=== PATIENT | female | born 1940 | race Caucasian/White ===

== ENCOUNTER 2018-08-17 12:05 | Inpatient (IN) | payer MEDICARE, MEDICAID ==
[~2018-08-17 12:05] MED LIST: ISOVUE-370 76%-LOCM 1 ML ONE
[2018-08-17] MEDS ORDERED: Aspirin Chewable 81 MG TAB ONE (13:06)
[2018-08-17] MEDS ORDERED: Nitroglycerin 2% Ointment 1 INCH/1 GM Packet ONE (13:06)
[2018-08-17 13:09] LABS: #Lymphocytes 1.4 thou/uL (1.20-3.40); #Monocytes 0.4 thou/uL (0.11-0.59); #Neutrophils 3.4 thou/uL (1.40-6.50); %Basophils 0.3 % (0.0-1.0); %Eosinophils 0.5 % (0.0-10.0); %Lymphocytes 26.1 % (21.0-51.0); %Neutrophils 65.1 % (42.0-75.0); Mean Corpuscular HGB CONC 30.5 g/dL (32.0-36.0); Mean Corpuscular Hemoglobin 23.5 pg (27.0-31.0); Mean Corpuscular Volume 76.9 fL (78.0-98.0); Mean Platelet Volume 8.3 fL (7.4-10.4); Platelet Count 340 thou/uL (130-400); RBC Distribution Width 15.4 % (11.5-14.5); Red Blood Cell (RBC) Count 3.82 mill/uL (4.20-5.40); White Blood Cell (WBC) Count 5.3 thou/uL (4.8-10.8)
--- NOTE | 2018-08-17 13:25 | RAD ---
Chest AP view INDICATION: Dyspnea COMPARISON: None FINDINGS: Lungs:There are scattered chronic lung changes. No acute airspace opacity is evident. Cardiac silhouette pulmonary vasculature:There is moderate cardiomegaly. No pulmonary vascular conges tion is present. Pleural spaces:No pleural effusion or pneumothorax is demonstrated. Upper abdomen:No abnormality seen. Osseous structures: There is scattered degenerative and osteoarthritic change. There is mild scoliosi s. There is a wedge compression abnormality of T12 vertebral plasty change. IMPRESSION: Moderate cardiomegaly without evidence of cardiac decompensation.
[2018-08-17 13:38] LABS: ALT (SGPT) Less than 7 U/L (8-55); AST (SGOT) 10 U/L (5-34); Albumin 4.1 g/dL (3.4-4.8); Alkaline Phosphatase 70 U/L (40-150); Anion Gap 12 mmol/L (10-20); BUN (Urea Nitrogen) 17 mg/dL (9.8-20.1); Bilirubin, Total 0.3 mg/dL (0.2-1.2); Calc. Creatinine Clearance 0 mL/min (70-130); Calcium 9.9 mg/dL (7.8-10.44); Carbon Dioxide 27 mmol/L (23-31); Chloride 104 mmol/L (98-107); Estimated GFR-MDRD 80; Globulin 2.1 g/dL (2.4-3.5); Glucose 89 mg/dL (83-110); Lipase 472 U/L (8-78); Potassium 4.8 mmol/L (3.5-5.1); Protein, Total 6.2 g/dL (6.0-8.3); Sodium 138 mmol/L (136-145)
--- NOTE | 2018-08-17 14:42 | CT ---
CT abdomen and pelvis with IV contrast HISTORY: Chest and abdomen pain. FINDINGS: Mild atelectasis at the lung bases. Calcification throughout the arterial structures. Small right renal cysts. Other solid organs are within normal limits. Nonspecific lymph nodes throughout the retroperitoneum and mesentery. Urinary bladder is well distended. Bilateral hip prostheses. Degen erative changes lumbar spine. Appendix is not inflamed. No evidence of bowel obstruction. IMPRESSION: No acute abnormalities are demonstrated to explain pain. Atherosclerosis.
[2018-08-17] MEDS ORDERED: Senokot S 8.6-50 MG TAB PO PRN (15:04)
[2018-08-17] MEDS ORDERED: Guaifenesin DM 100-10/5 ML UDCUP PO PRN (15:04)
[2018-08-17] MEDS ORDERED: Acetaminophen 650 MG Suppository PR PRN (15:04)
[2018-08-17] MEDS ORDERED: Ondansetron ODT 4 MG TAB PO PRN (15:04)
[2018-08-17] MEDS ORDERED: Ondansetron PF 4 MG/2 ML Vial IVP PRN (15:04)
--- NOTE | 2018-08-17 15:31 | ULT ---
GALLBLADDER ULTRASOUND: INDICATIONS: Abdominal pain. FINDINGS: The gallbladder has a normal sonographic appearance. No evidence of gallstones. The common duct is of normal caliber, measured at 4 mm. The liver is unremarkable. The pancreas is mostly obscured. The right kidney is imaged and appears unremarkable. IMPRESSION: Unremarkable gallbladder ultrasound. POS: [facility]
[2018-08-17] MEDS ORDERED: HumaLOG 300 UNITS/3 ML VIAL SC PRN ×2 (15:47)
[2018-08-17] MEDS ORDERED: Dextrose 5% in Water 1,000 ML IV PRN (15:47)
[2018-08-17] MEDS ORDERED: Dextrose 50% Abboject 50 ML SYRINGE SLOW IVP PRN (15:47)
[2018-08-17 15:49] LABS: Cardiac Risk 3.1 (Less than 4.5)
[2018-08-17 17:21] LABS: Troponin I Less than 0.010 ng/mL (< 0.028)
[2018-08-17] MEDS: Sodium Chloride 0.9% 1,000 ML IV SCH (18:02)
[2018-08-17] MEDS: metFORMIN 500 MG TAB PO SCH (18:02)
[2018-08-17] MEDS: Acetaminophen 325 MG TAB PO PRN (18:02)
[2018-08-17 20:02] LABS: Troponin I Less than 0.010 ng/mL (< 0.028)
[2018-08-17] MEDS: Pregabalin 75 MG CAP PO SCH (20:53)
[2018-08-17] MEDS: Senokot 8.6 MG TAB PO SCH (20:53)
[2018-08-17] MEDS: Donepezil HCl 5 MG TAB PO SCH (20:54)
[2018-08-17] MEDS: Carbidopa/Levodopa 25-100 mg Tablet PO SCH (20:54)
[2018-08-17] MEDS: Tamsulosin HCl 0.4 MG CAP PO SCH (20:56)
[2018-08-17] MEDS: Loratadine 10 MG TAB PO SCH (20:56)
[2018-08-17] MEDS ORDERED: Famotidine/PF 20 mg/2ml Vial SLOW IVP SCH (21:00)
--- NOTE | 2018-08-17 21:26 | CON ---
DATE OF CONSULTATION: 08/17/2018 REASON FOR CONSULTATION: Chest pain. HISTORY OF PRESENT ILLNESS: Ms. Latif is a very pleasant 78-year-old white female, who comes to the hospital for chest pain. She states that she has chest pains all the time. She has had it for many years. In the last 2 weeks, it has been worsening, so she finally decided to come in for evaluation. She was given aspirin, sublingual nitroglycerin spray and there was no significant improvement in her chest pain. She states that it is in the left upper part, she feels it is deeper when you touch her chest, she complains of pain at that time as well. Currently, she is having the same ongoing pain that she has had for the last few years and worse in the last few weeks. PAST MEDICAL HISTORY: 1. Parkinson disease. 2. Chronic UTIs. 3. TIAs in the past. 4. Mild facial droop. 5. Type 2 diabetes. 6. Hyperlipidemia. 7. Hypertension. SURGICAL HISTORY: 1. Bilateral ankles surgery. 2. Knee surgery. 3. Hip surgery. 4. Right wrist surgery. 5. Skin cancer removal. 6. Tonsillectomy. SOCIAL HISTORY: Former tobacco user, quit over 10 years ago. Lives in a long-term care facility in the [facility]. No alcohol or drugs. ALLERGIES: 1. CODEINE. 2. PENICILLIN. 3. SULFA DRUGS. OUTPATIENT MEDICATIONS: 1. Estradiol. 2. Tamsulosin, unclear as to why she is on tamsulosin. 3. Namenda. 4. Aricept. 5. Lyrica. 6. Nexium. 7. Sinemet. 8. Senna. 9. Vitamin E. 10. Vitamin D. 11. Aspirin 81 a day. 12. Lamotrigine. 13. Zyrtec. 14. Metformin 1000 mg twice a day. REVIEW OF SYSTEMS: A 12-point review of systems was done and was all negative unless stated in the history of present illness. She also admits to abdominal pain. PHYSICAL EXAMINATION: VITAL SIGNS: Temperature 97.8, pulse 62, respiratory rate 16, saturating 96% on room air, and blood pressure 135/61. GENERAL: Awake, alert, and oriented x3, in no distress. HEENT: Normocephalic atraumatic. NECK: Supple. LUNGS: Clear. CARDIOVASCULAR: S1 and S2. No S3 or S4. No murmurs. ABDOMEN: Soft. Positive bowel sounds. EXTREMITIES: No edema. SKIN: Warm and dry. LABORATORY DATA: Laboratory work was reviewed. CBC with a white count of 5.3, hemoglobin of 9.0, hematocrit of 29, platelet count of 340. Chemistry with unremarkable CMP. AST is less than assay limit. Troponin is undetectable x2. Glucose was 75, then 144. Cholesterol total of 211, LDL of 122, HDL of 69, triglycerides of 102. Lipase was 472, normal is up to 78. DIAGNOSTIC DATA: CT of the abdomen and pelvis was unremarkable. Abdominal ultrasound was unremarkable as well. Chest x-ray was unremarkable. ASSESSMENT: 1. Chest pain, atypical in nature. 2. Abdominal pain. Primary team is evaluating. 3. Elevated lipase. Nonspecific finding at this time. PLAN: We would risk stratify with an echo and a stress test. I do not think this is coronary artery disease. The symptoms are certainly not typical. We will get a nuclear myocardial perfusion scan and an echocardiogram, and further recommendations per results of testing. Job ID: [id number]
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
--- NOTE | 2018-08-18 02:43 | CON ---
DATE OF CONSULTATION: 08/17/2018 REASON FOR CONSULTATION: Pancreatitis. HISTORY OF PRESENT ILLNESS: Emily Latif is a 78-year-old woman who was admitted to the hospital today for evaluation of chest pain with labs demonstrating elevated lipase. The patient has a history of Parkinson's disease, chronic recurrent urinary tract infections, and a previous mild TIA. She has diabetes, hyperlipidemia, and hypertension. She denies any prior history of pancreatitis or any significant gastrointestinal history. She is a former tobacco user. She does not use any alcohol. She lives at a long-term care facility. She reports that for about the past 10 days, she has been having steadily progressively worsening chest pain. This is in the left side of the chest. It is worse with activity, not particularly related to eating. It significantly worsened earlier today prompting her presentation. She does associate with some shortness of breath, though no cough. She denies any dysphagia or difficulty swallowing. She does say she was nauseated 2 or 3 times in the past couple of days, though she has not had any vomiting. She also does say she has some generalized abdominal tenderness, but attributes this to recurrent urinary tract infections. No issues with the bowel movements. She also tells me that she is steadily lost weight 80-90 pounds over the past year. She says her appetite fluctuates. It is often very good and then she will go through periods where it is quite poor. She attributes this to depression. Upon presentation, she was found to have an elevated lipase to 472, but normal LFTs. Negative troponin. She is also anemic with hemoglobin of 9.0, note hemoglobin was 9.7 last April. This is a microcytic anemia with MCV at 76.9. There is no overt bleeding from anywhere. IMAGING: Imaging studies showed essentially normal abdominal ultrasound, normal CT of the abdomen and pelvis except for atherosclerosis and the chest x-ray showing only moderate cardiomegaly. Cardiology has been consulted as well. The patient was actually given a regular cardiac diet and says she ate some turkey and some salad with no significant impact on chest discomfort or any inducement of abdominal pain. REVIEW OF SYSTEMS: Full review of systems including constitutional, head, eyes, ears, nose, throat, GI, , cardiovascular, respiratory, musculoskeletal, neurologic systems is negative except as noted in the HPI. PAST MEDICAL HISTORY: Parkinson's disease, TIA, hypertension, hyperlipidemia, diabetes type 2, right-sided facial droop, recurrent urinary tract infections, bilateral knee surgery, right wrist surgery, skin cancer removal from the face x2, tonsillectomy. SOCIAL HISTORY: She lives in [facility] in [place]. She is a former smoker, quit more than 10 years ago. No alcohol or drug use. FAMILY HISTORY: Noncontributory. ALLERGIES: CODEINE, PENICILLIN, SULFA. OUTPATIENT MEDICATIONS: 1. Estradiol patch. 2. Flomax. 3. Namenda. 4. Aricept. 5. Lyrica. 6. Nexium 40 mg daily. Sinemet. 1. Senna 8.6 mg daily. 2. Vitamin E. 3. Vitamin D with calcium. 4. Aspirin 81 mg daily. 5. Lamotrigine. 6. Zyrtec. 7. Metformin. PHYSICAL EXAMINATION: VITAL SIGNS: Temperature 98.4, pulse 56, blood pressure 144/75, 98% oxygen saturation on room air. GENERAL: Elderly 78-year-old woman lying in bed comfortably, in no distress. MENTAL: She is alert and oriented. She is able to answer detailed questions about current symptoms; however recent and distant past history is less clear to her. SKIN: No jaundice, no rashes were palpable. EYES: No scleral icterus. Extraocular movements intact. ENT: Mucous membranes moist. No oral lesions. LYMPH: No submandibular supraclavicular lymphadenopathy. THYROID: Nontender to palpation. HEART: Regular rate and rhythm. LUNGS : Clear to auscultation bilaterally. ABDOMEN: Bowel sounds are present. The abdomen is soft. She does endorse diffuse mild tenderness to palpation throughout the abdomen, but there is no guarding, rebound tenderness. EXTREMITIES: No peripheral edema. VESSELS: Radial pulses 2+ bilaterally. NEUROLOGIC: Cranial nerves 2-12 intact bilaterally. No focal deficits. LABORATORY STUDIES: Hemoglobin 9.0, WBC 5.3, platelets 340, MCV 76.9. Sodium 138, potassium 4.8, BUN 17, creatinine 0.71, glucose 89, total bilirubin 0.3, alkaline phosphatase 70, AST 10, ALT less than 7, albumin 4.1, triglyceride 102. Troponin negative. Lipase elevated to 472. IMAGING STUDIES: Chest x-ray shows moderate cardiomegaly. Abdominal ultrasound shows normal appearing liver, gallbladder and common bile duct measuring only [address] of the abdomen and pelvis shows diffuse atherosclerosis, but otherwise no abnormalities with solid organs. No acute processes. ASSESSMENT/PLAN: 1. Chest pain, left-sided. 2. Elevated lipase, mild. 3. Microcytic anemia. The patient's symptomatic presentation is really not highly suggestive of pancreatitis. Her discomfort is primarily in the left side of the chest and is related more to exertion than to oral intake. I agree with cardiac consultation and any workup as appropriate. She does have a mild elevation in lipase, but I note no significant findings for pancreatitis on imaging. I do think it would be prudent to have her n.p.o. tonight and tomorrow morning, treat supportively as pancreatitis while cardiac workup is ongoing. With regard to the anemia, this is mildly microcytic. We will go ahead and get iron studies, B12, and folic acid levels with morning labs. If the patient is iron deficient, consider anemia as a contributing factor for her chest discomfort. Could consider endoscopic workup to rule out occult bleeding lesion, if iron deficiency is demonstrated. Thank you for the consultation. Please call anytime with questions or concerns. Job ID: [id number]
[2018-08-18] MEDS: Acetaminophen 325 MG TAB PO PRN ×2 (04:08→18:32)
[2018-08-18] MEDS: Sodium Chloride 0.9% 1,000 ML IV SCH ×2 (04:20→18:38)
[2018-08-18] MEDS: Morphine 4 MG/ML VIAL SLOW IVP PRN ×2 (06:08→10:33)
[2018-08-18 06:21] LABS: #Eosinphils 0.1 thou/uL (0.0-0.7); #Lymphocytes 1.7 thou/uL (1.20-3.40); #Monocytes 0.6 thou/uL (0.11-0.59); #Neutrophils 5.5 thou/uL (1.40-6.50); %Basophils 0.5 % (0.0-1.0); %Eosinophils 0.8 % (0.0-10.0); %Lymphocytes 21.1 % (21.0-51.0); %Monocytes 7.8 % (0.0-10.0); %Neutrophils 69.9 % (42.0-75.0); Mean Corpuscular HGB CONC 31.2 g/dL (32.0-36.0); Mean Corpuscular Hemoglobin 23.9 pg (27.0-31.0); Mean Corpuscular Volume 76.7 fL (78.0-98.0); Mean Platelet Volume 8.6 fL (7.4-10.4); Platelet Count 351 thou/uL (130-400); RBC Distribution Width 15.5 % (11.5-14.5); Red Blood Cell (RBC) Count 3.78 mill/uL (4.20-5.40); White Blood Cell (WBC) Count 7.9 thou/uL (4.8-10.8)
[2018-08-18 06:43] LABS: ALT (SGPT) Less than 7 U/L (8-55); AST (SGOT) 9 U/L (5-34); Albumin 3.6 g/dL (3.4-4.8); Alkaline Phosphatase 68 U/L (40-150); Anion Gap 11 mmol/L (10-20); BUN (Urea Nitrogen) 14 mg/dL (9.8-20.1); Bilirubin, Total 0.3 mg/dL (0.2-1.2); Calc. Creatinine Clearance 62 mL/min (70-130); Carbon Dioxide 26 mmol/L (23-31); Chloride 105 mmol/L (98-107); Estimated GFR-MDRD 78; Globulin 2.2 g/dL (2.4-3.5); Glucose 90 mg/dL (83-110); Iron 16 ug/dL (50-170); Iron Binding Capacity, Total 358 mcg/dL (265-497); Lipase 632 U/L (8-78); Potassium 3.8 mmol/L (3.5-5.1); Protein, Total 5.8 g/dL (6.0-8.3); Sodium 138 mmol/L (136-145)
[2018-08-18 07:13] LABS: Folate (Folic Acid) 7.6 ng/mL (7.0-31.4)
[2018-08-18] MEDS ORDERED: Regadenoson 0.4 MG/5 ML SYRINGE ONE (10:24)
[2018-08-18] MEDS: Pregabalin 75 MG CAP PO SCH ×2 (10:42→20:41)
--- NOTE | 2018-08-18 14:49 | NM ---
EXAM: CARDIAC SPECT HISTORY: Chest pain, TIA, diabetes, hypertension, dyslipidemia. TECHNIQUE: A myocardial perfusion scan was performed using the single isotope 1 day protocol with prince hnetium 99m sestamibi. [9 mCi] was injected intravenously for the rest exam followed by 28 mCi for the stress study. Pharmacologic stress with Lexiscan was monitored and interpreted by Dr. Montano. FINDINGS: Homogeneous tracer distribution is seen in the myocardial segments on stress and rest image s without fixed or reversible defects. Gated SPECT LVEF: 58% Wall motion exam: Normal IMPRESSION: Normal myocardial perfusion scan
[2018-08-18] MEDS: Carbidopa/Levodopa 25-100 mg Tablet PO SCH ×3 (15:04→20:51)
[2018-08-18] MEDS: Tamsulosin HCl 0.4 MG CAP PO SCH ×2 (15:04→20:51)
[2018-08-18] MEDS: metFORMIN 500 MG TAB PO SCH ×2 (15:05→18:34)
[2018-08-18] MEDS: Enoxaparin Sodium 40 MG/0.4 ML SYRINGE SC SCH (15:06)
[2018-08-18] MEDS: lamoTRIgine 100 MG TAB PO SCH (15:07)
[2018-08-18] MEDS: Aspirin 81 mg Enteric Coated Tablet PO SCH (15:08)
--- NOTE | 2018-08-18 16:06 | PDOC.CTH ---
Cardiology Progress Note - Subjective No new issues. - Objective Vital Signs Temp Pulse Pulse Resp BP BP Pulse Ox 08/18/18 14:36 98.3 F 68 18 151/72 H 95 08/18/18 14:10 78 159/60 H 08/18/18 07:56 98.3 F 63 18 177/81 H 95 Admit Weight 137 lb 8 oz Weight 133 lb 8 oz 08/17/18 08/18/18 08/19/18 06:59 06:59 06:59 Intake Total 1410.5 Output Total 825 Balance 585.5 - Physical Examination General/Neuro: alert & oriented x3, NAD Neck: no JVD present Lungs: CTA, unlabored respirations Heart: RRR Abdomen: NT/ND Extremities: other: (no edema.) - Telemetry Telemetry Rhythm: NSR - Labs Result Diagrams: 08/18/18 05:47 08/18/18 05:47 Troponin/CKMB Troponin I Less than 0.010 ng/mL (< 0.028) 08/17/18 19:30 - Assessment/Plan 1. Chest pain PLAN: - Normal echo , normal stress test. - Reassurance. - Will sign out. Please call with any questions.
--- NOTE | 2018-08-18 16:07 | PDOC.PN ---
- Subjective Encounter Start Date: 08/18/18 Encounter Start Time: 09:00 -: patient examined today, still c/o of abdominal pain - Objective Resuscitation Status - Order Detail: 08/17/18 14:55 Resuscitation Status Routine Resuscitation Status: FULL: Full Resuscitation Discussed with: Patient Vital Signs & Weight: Vital Signs (12 hours) Temp Pulse Pulse Resp BP BP Pulse Ox 08/18/18 14:36 98.3 F 68 18 151/72 H 95 08/18/18 14:10 78 159/60 H 08/18/18 07:56 98.3 F 63 18 177/81 H 95 Weight Admit Weight 62.369 kg Weight 60.555 kg I&O: 08/17/18 08/18/18 08/19/18 06:59 06:59 06:59 Intake Total 1410.5 Output Total 825 Balance 585.5 Result Diagrams: 08/18/18 05:47 08/18/18 05:47 Additional Labs: Accuchecks 08/18/18 08/17/18 08/17/18 05:24 20:19 17:52 POC Glucose 100 144 H 75 Phys Exam - Physical Examination HEENT: PERRLA, moist MMs Respiratory: clear to auscultation bilateral Cardiovascular: RRR Gastrointestinal: soft diffusely tender Musculoskeletal: pulses present Neurological: non-focal, normal sensation Lymphatic: no nodes Psychiatric: normal affect, A&O x 3 Skin: normal turgor Dx/Plan (1) Abdominal pain Code(s): R10.9 - UNSPECIFIED ABDOMINAL PAIN Status: Acute (2) Pancreatitis Code(s): K85.90 - ACUTE PANCREATITIS WITHOUT NECROSIS OR INFECTION, UNSP Status: Acute (3) Diabetes mellitus Code(s): E11.9 - TYPE 2 DIABETES MELLITUS WITHOUT COMPLICATIONS Status: Chronic (4) Hypertension Code(s): I10 - ESSENTIAL (PRIMARY) HYPERTENSION Status: Chronic - Plan NPO, IV fluids, UA -: Will recheck lab in the AM, * .
[2018-08-18] MEDS ORDERED: GoLYTELY 4,000 ml Bottle PO SCH (18:15)
--- NOTE | 2018-08-18 18:42 | PRG ---
DATE OF SERVICE: 08/18/2018 SUBJECTIVE: Ms. Latif says her chest pain has greatly improved today, but she does still complain of abdominal pain. This is migratory throughout the abdomen. The upper abdomen is tender to palpation and so was the lower abdomen. There was some mild nausea, but no vomiting. She had fairly unremarkable cardiac evaluation and Cardiology has signed off. Amylase and lipase both remain mildly elevated and she remains hemodynamically stable. She actually had several bites of a sandwich after her stress test today, and does not feel like that particularly made her abdominal discomfort worse. However, her appetite remains poor. OBJECTIVE: VITAL SIGNS: Temperature 98.3, pulse 68, blood pressure 151/72, and 95% oxygen saturation on room air. GENERAL: No acute distress. HEART: Regular rate and rhythm. LUNGS: Clear to auscultation bilaterally. ABDOMEN: Bowel sounds present. Soft. Diffuse tenderness to palpation throughout. No guarding or rebound tenderness. EXTREMITIES: No peripheral edema. LABORATORY STUDIES: Hemoglobin 9.0, WBC 7.9, platelets 351. Sodium 138, potassium 3.8, BUN 14, creatinine 0.72, glucose 124. She is iron deficient with ferritin only 8.39, iron 16, TIBC 358. LFTs all remain normal. B12 was normal at 838, folate 7.6, amylase elevated , lipase elevated to 632. ASSESSMENT AND PLAN: 1. Iron-deficiency anemia. 2. Chest pain, resolved for now. 3. Generalized abdominal pain. 4. Elevated amylase and lipase. The patient's presentation still does not really add up. She has these mild elevations of amylase and lipase, but no CT findings consistent with pancreatitis. She has this more generalized abdominal pain, which is not necessarily worsened postprandially. Putting this all together with the iron-deficiency anemia, need to consider GI mucosal based lesion or malignancy. The patient states her last colonoscopy would have been greater than 5 years ago elsewhere and that she is due for it. I think the best way forward would be to go ahead and proceed with endoscopic workup for her iron-deficiency anemia, and also see on the abdominal pain. We will go ahead and try to administer bowel preparation tonight and plan for procedure tomorrow. Thank you for the consultation. GI will continue to follow. Further recommendations following endoscopy tomorrow. Job ID: [id number]
[2018-08-18] MEDS: Donepezil HCl 5 MG TAB PO SCH (20:50)
[2018-08-18] MEDS: Senokot 8.6 MG TAB PO SCH (20:51)
[2018-08-18] MEDS: Loratadine 10 MG TAB PO SCH (20:51)
[2018-08-19] MEDS: Sodium Chloride 0.9% 1,000 ML IV SCH (06:17)
[2018-08-19] MEDS: Morphine 4 MG/ML VIAL SLOW IVP PRN ×2 (06:41→20:17)
[2018-08-19] MEDS ORDERED: Artificial Tears 18 DROP/0.9 ML EA EYE PRN (07:44)
[2018-08-19] MEDS ORDERED: Loperamide HCl 2 MG CAP PO PRN (07:44)
[2018-08-19] MEDS ORDERED: hydrALAZINE 20 MG/ML VIAL SLOW IVP PRN (07:44)
[2018-08-19] MEDS ORDERED: Zolpidem Tartrate 5 MG TAB PO PRN (07:44)
[2018-08-19] MEDS ORDERED: Eucerin (Mineral Oil/Petrolatum,White) 30 gm Jar TOP PRN (07:44)
[2018-08-19] MEDS ORDERED: Bisacodyl 10 MG SUPP PR PRN (07:44)
[2018-08-19] MEDS ORDERED: Diabetic Tussin 200 MG/10 ML UDCUP PO PRN (07:44)
[2018-08-19] MEDS ORDERED: Cepastat Lozenges 1 LOZ PO PRN (07:44)
[2018-08-19] MEDS ORDERED: Iron Sucrose Complex 200 MG in Sodium Chloride 0.9% 250 ML 250 ML IVPB SCH (07:45)
[2018-08-19] MEDS ORDERED: Iron, Sodium Ferric Gluconate 250 MG in Sodium Chloride 0.9% 100 ML IVPB SCH (08:00)
[2018-08-19] MEDS: metFORMIN 500 MG TAB PO SCH ×2 (08:57→16:57)
[2018-08-19] MEDS: Pregabalin 75 MG CAP PO SCH ×2 (08:57→20:22)
[2018-08-19] MEDS: Aspirin 81 mg Enteric Coated Tablet PO SCH (08:57)
[2018-08-19] MEDS: Enoxaparin Sodium 40 MG/0.4 ML SYRINGE SC SCH (08:57)
[2018-08-19] MEDS: Tamsulosin HCl 0.4 MG CAP PO SCH ×2 (08:58→20:22)
[2018-08-19] MEDS: Carbidopa/Levodopa 25-100 mg Tablet PO SCH ×3 (08:58→20:25)
[2018-08-19] MEDS: lamoTRIgine 100 MG TAB PO SCH (08:58)
--- NOTE | 2018-08-19 10:10 | PDOC.PN ---
- Subjective Encounter Start Date: 08/19/18 Encounter Start Time: 07:50 Patient seen and examined. No new complaints. No overnight events - Objective Resuscitation Status - Order Detail: 08/17/18 14:55 Resuscitation Status Routine Resuscitation Status: FULL: Full Resuscitation Discussed with: Patient ANASTACIO Reviewed: Yes Vital Signs & Weight: Vital Signs (12 hours) Temp Pulse Resp BP BP Pulse Ox 08/19/18 07:21 98.1 F 67 18 179/82 H 98 08/19/18 03:14 98.0 F 65 18 146/72 H 92 L 08/19/18 00:19 97.9 F 77 177/87 H 98 Weight Admit Weight 137 lb 8 oz Weight 135 lb I&O: 08/18/18 08/19/18 08/20/18 06:59 06:59 06:59 Intake Total 1410.5 5220 Output Total 825 480 Balance 585.5 4740 Result Diagrams: 08/18/18 05:47 08/18/18 05:47 Additional Labs: Accuchecks 08/19/18 08/18/18 08/18/18 05:42 20:17 16:54 POC Glucose 88 99 124 H EKG Reviewed by me: Yes Phys Exam - Physical Examination Constitutional: NAD HEENT: PERRLA, moist MMs, sclera anicteric Neck: no JVD, supple Respiratory: no wheezing, no rales, no rhonchi Cardiovascular: RRR, no significant murmur, no rub Gastrointestinal: soft, non-tender, no distention, positive bowel sounds Musculoskeletal: no edema, pulses present Neurological: non-focal, normal sensation, moves all 4 limbs Lymphatic: no nodes Psychiatric: normal affect, A&O x 3 Skin: no rash, normal turgor Dx/Plan (1) Abdominal pain Code(s): R10.9 - UNSPECIFIED ABDOMINAL PAIN Status: Resolved Qualifiers: Abdominal location: generalized Qualified Code(s): R10.84 - Generalized abdominal pain (2) Chest pain Code(s): R07.9 - CHEST PAIN, UNSPECIFIED Status: Resolved (3) Elevated amylase and lipase Code(s): R74.8 - ABNORMAL LEVELS OF OTHER SERUM ENZYMES Status: Acute Comment: unclear etiology (4) Dementia Code(s): F03.90 - UNSPECIFIED DEMENTIA WITHOUT BEHAVIORAL DISTURBANCE Status: Chronic Qualifiers: Dementia type: Alzheimer's disease (5) Diabetes type 2, controlled Code(s): E11.9 - TYPE 2 DIABETES MELLITUS WITHOUT COMPLICATIONS Status: Chronic (6) GERD (gastroesophageal reflux disease) Code(s): K21.9 - GASTRO-ESOPHAGEAL REFLUX DISEASE WITHOUT ESOPHAGITIS Status: Chronic (7) Hypertension Code(s): I10 - ESSENTIAL (PRIMARY) HYPERTENSION Status: Chronic (8) Iron deficiency anemia Code(s): D50.9 - IRON DEFICIENCY ANEMIA, UNSPECIFIED Status: Chronic (9) Parkinson disease Code(s): G20 - PARKINSON'S DISEASE Status: Chronic - Plan cont current plan of care, PT/OT, mental health social worker * today she is planned for colonoscopy * i will give her venofer IV today and tomorrow * medication reviewed as below * symptomatic treatment * eventual placement to [facility] * [place] tele * transfer to medical Review of Systems - Review of Systems ENT: negative: Ear Pain, Ear Discharge, Nose Pain, Nose Discharge, Nose Congestion, Mouth Pain, Mouth Swelling, Throat Pain, Throat Swelling, Other Respiratory: negative: Cough, Dry, Shortness of Breath, Hemoptysis, SOB with Excertion, Pleuritic Pain, Sputum, Wheezing Cardiovascular: negative: chest pain, palpitations, orthopnea, paroxysmal nocturnal dyspnea, edema, light headedness, other Gastrointestinal: negative: Nausea, Vomiting, Abdominal Pain, Diarrhea, Constipation, Melena, Hematochezia, Other Genitourinary: negative: Dysuria, Frequency, Incontinence, Hematuria, Retention , Other Musculoskeletal: negative: Neck Pain, Shoulder Pain, Arm Pain, Back Pain, Hand Pain, Leg Pain, Foot Pain, Other Skin: negative: Rash, Lesions, Filippo, Bruising, Other - Medications/Allergies Allergies/Adverse Reactions: Allergies Allergy/AdvReac Type Severity Reaction Status Date / Time codeine Allergy Verified 08/17/18 17:46 Penicillins Allergy Verified 08/17/18 17:46 Sulfa (Sulfonamide Allergy Verified 08/17/18 17:46 Antibiotics) Medications: Current Medications Acetaminophen (Tylenol) 650 mg PO Q4H PRN PRN Reason: Headache/Fever/Mild Pain (1-3) Last Admin: 08/18/18 18:32 Dose: 650 mg Acetaminophen (Tylenol) 650 mg GA Q4H PRN PRN Reason: Headache/Fever/Mild Pain (1-3) Artificial Tears (Tears Naturale) 2 drop EA EYE PRN PRN PRN Reason: Dry Eyes Aspirin (Ecotrin) 81 mg PO DAILY [facility] Last Admin: 08/19/18 08:57 Dose: 81 mg Bisacodyl (Dulcolax) 10 mg GA DAILYPRN PRN PRN Reason: Constipation Carbidopa/Levodopa (Sinemet 25-100) 1.5 tab PO TID [facility] Last Admin: 08/19/18 08:58 Dose: 1.5 tab Dextrose/Water (Dextrose 50%) 25 gm SLOW IVP PRN PRN PRN Reason: Hypoglycemia Donepezil HCl (Aricept) 5 mg PO [facility] Last Admin: 08/18/18 20:50 Dose: 5 mg Enoxaparin Sodium (Lovenox) 40 mg SC 0900 [facility] Last Admin: 08/19/18 08:57 Dose: 40 mg Glucagon (Glucagon) 1 mg IM PRN PRN PRN Reason: Hypoglycemia Guaifenesin (Robitussin Sf) 200 mg PO Q4H PRN PRN Reason: Cough Guaifenesin/Dextromethorphan (Robitussin Dm) 15 ml PO Q4H PRN PRN Reason: Cough Hydralazine HCl (Apresoline) 10 mg SLOW IVP Q4H PRN PRN Reason: SBP > 180 and HR < 70 Dextrose/Water (D5w) 1,000 mls @ 0 mls/hr IV .Q0M PRN PRN Reason: Hypoglycemia Ferric Sodium Gluconate Complex 250 mg/ Sodium Chloride 120 mls @ 60 mls/hr IVPB NOW [facility] Stop: 08/19/18 12:00 Last Admin: 08/19/18 09:35 Dose: 120 mls Insulin Human Lispro (Humalog) 0 units SC .MILD SLIDING SCALE PRN PRN Reason: Mild Correctional Scale Insulin Human Lispro (Humalog) 0 units SC .BEDTIME SLIDING SC PRN PRN Reason: Bedtime Correctional Scale Lamotrigine (Lamictal) 100 mg PO DAILY [facility] Last Admin: 08/19/18 08:58 Dose: 100 mg Loperamide HCl (Imodium) 2 mg PO PRN PRN PRN Reason: Diarrhea/Loose Stools Loratadine (Claritin) 10 mg PO [facility] Last Admin: 08/18/18 20:51 Dose: 10 mg Memantine (Namenda) 5 mg PO DAILY [facility] Last Admin: 08/19/18 08:57 Dose: 5 mg Metformin HCl (Glucophage) 1,000 mg PO BID-[facility] Last Admin: 08/19/18 08:57 Dose: 1,000 mg Mineral Oil/White Petrolatum (Eucerin Cream) 0 gm TOP BIDPRN PRN PRN Reason: Dry Skin Morphine Sulfate (Morphine) 4 mg SLOW IVP Q4H PRN PRN Reason: Severe Pain (7-10) Last Admin: 08/19/18 06:41 Dose: 4 mg Ondansetron HCl (Zofran Odt) 4 mg PO Q6H PRN PRN Reason: Nausea/Vomiting Ondansetron HCl (Zofran) 4 mg IVP Q6H PRN PRN Reason: Nausea/Vomiting Last Admin: 08/18/18 10:34 Dose: 4 mg Pantoprazole Sodium (Protonix) 40 mg PO DAILY [facility] Last Admin: 08/19/18 08:58 Dose: 40 mg Pregabalin (Lyrica) 75 mg PO BID [facility] Last Admin: 08/19/18 08:57 Dose: 75 mg Senna (Senokot) 1 tab PO [facility] Last Admin: 08/18/18 20:51 Dose: 1 tab Senna/Docusate Sodium (Senokot S) 2 tab PO BID PRN PRN Reason: Constipation Tamsulosin HCl (Flomax) 0.4 mg PO BID [facility] Last Admin: 08/19/18 08:58 Dose: 0.4 mg Throat Lozenges (Cepastat Lozenges) 1 devon PO Q2H PRN PRN Reason: Sore Throat Zolpidem Tartrate (Ambien) 5 mg PO HSPRN PRN PRN Reason: Insomnia
[2018-08-19] MEDS ORDERED: Promethazine HCl 25 MG/ML VIAL SLOW IVP PRN (11:31)
[2018-08-19] MEDS ORDERED: Ondansetron HCl/PF 4 MG/2 ML Vial IVP PRN (11:31)
[2018-08-19] MEDS ORDERED: Promethazine HCl 25 MG/ML VIAL IM PRN (11:31)
[2018-08-19] MEDS ORDERED: Lidocaine 1% PF 5 ML VIAL ONE (12:16)
[2018-08-19] MEDS ORDERED: PROPOFOL 200 MG/20 ML VIAL ONE (12:16)
[2018-08-19 15:44] LABS: Bilirubin Negative (Negative); Blood, Urine Trace (Negative); Clarity CLOUDY (Clear); Glucose, Urine (Dipstick) Negative (Negative); Leukocyte Large (Negative); Nitrite Negative (Negative); Protein, Urine (Dipstick) 30 mg/dL (Neg-Trace); Specific Gravity, Urine 1.009 (1.002-1.036); Urobilinogen 0.2 mg/dL (0.2-1.0); pH, Urine 7.5 (5.0-9.0)
[2018-08-19 15:46] LABS: Hyaline Casts/LPF 0-3 HYALINE CAST LPF (0-3 Hyaline); Pathc Cast-AUWi Flag 0.27 (0-2.49); Squamous Epithelial 0-3 HPF (0-3)
[2018-08-19 15:48] LABS: Yeast-AUWi Flag 76.7 (0-25.0)
[2018-08-19 15:56] LABS: Bacteria/HPF 3+ HPF (None Seen); Yeast-All Forms None Seen HPF (None Seen)
[2018-08-19 15:57] LABS: Urine Culture Reflex Yes Yes
--- NOTE | 2018-08-19 16:26 | OP ---
DATE OF PROCEDURE: 08/19/2018 BANKING ANALYST SURGEON: None. PROCEDURES PERFORMED: 1. Esophagogastroduodenoscopy with biopsies. 2. Colonoscopy. DIAGNOSTIC INDICATIONS: 1. Iron deficiency anemia. 2. Generalized abdominal pain, migratory. MEDICATIONS: See Anesthesia record. FINDINGS: After discussion of the risks, benefits, and alternatives of the procedure, informed consent was obtained and witnessed. Pre-endoscopic cardiopulmonary examination was satisfactory. Time-out was performed before sedation was achieved. Sedation was achieved with Anesthesia assistance in the endoscopy unit. A Pentax adult upper endoscope was placed into the oropharynx and passed through the cricopharyngeus under direct visualization. The esophageal mucosa appeared normal throughout. The endoscope was advanced into the stomach. Forward and retroflexed views of the entire gastric mucosa were obtained in the gastric antrum. There is some patchy linear erosive gastritis with no active bleeding. Biopsies were obtained from the gastric antrum and body to rule out H. pylori infection. The endoscope was advanced beyond the normal-appearing pylorus and into the first and second portions of the duodenum, which appeared normal. The upper endoscope was completely withdrawn and the patient was repositioned. Digital rectal exam was performed, which showed some small external hemorrhoids. A Pentax adult colonoscope was inserted into the anus and passed forward to the cecum in the usual fashion. The cecal base was identified by the appendiceal orifice as well as the ileocecal valve. The terminal ileum was not intubated. The colonoscope was slowly withdrawn in a gradual and circumferential manner with careful examination of the entire colonic mucosa. The quality of the prep was fair. There was a significant amount of liquid and particulate stool within the colon, but with extensive irrigation and suctioning, the examination was adequate. There was no evidence of any old blood or active bleeding in the colon. No bleeding lesion visualized. No polyps visualized. She has heavy sigmoid diverticulosis. The colonoscope was completely withdrawn and the patient allowed to recover. The patient tolerated the procedure well. There were no immediate postprocedure complications. IMPRESSION: 1. Erosive gastritis in the antrum, biopsied to rule out Helicobacter pylori. 2. Otherwise normal esophagogastroduodenoscopy. 3. Sigmoid diverticulosis. 4. Otherwise normal colonoscopy to the cecum, with fair bowel preparation. RECOMMENDATION: 1. Continue daily PPI. 2. Follow up pathology on the gastric biopsies. 3. Advance diet as tolerated. 4. We will plan to see the patient back in GI Clinic in the next 3 to 4 weeks. 5. Agree with plan already in place for iron replacement and supplementation. Job ID: [id number]
[2018-08-19 16:39] VITALS: BMI 25.0
[2018-08-19] MEDS: Senokot 8.6 MG TAB PO SCH (20:21)
[2018-08-19] MEDS: Donepezil HCl 5 MG TAB PO SCH (20:22)
[2018-08-19] MEDS: Loratadine 10 MG TAB PO SCH (20:22)
[2018-08-20] MEDS: Acetaminophen 325 MG TAB PO PRN (01:26)
[2018-08-20] MEDS: Morphine 4 MG/ML VIAL SLOW IVP PRN ×2 (01:27→22:42)
[2018-08-20 06:18] LABS: Anion Gap 11 mmol/L (10-20); BUN (Urea Nitrogen) 11 mg/dL (9.8-20.1); Calc. Creatinine Clearance 65 mL/min (70-130); Calcium 8.8 mg/dL (7.8-10.44); Carbon Dioxide 22 mmol/L (23-31); Chloride 105 mmol/L (98-107); Estimated GFR-MDRD 81; Glucose 86 mg/dL (83-110); Lipase 203 U/L (8-78); Potassium 3.3 mmol/L (3.5-5.1); Sodium 135 mmol/L (136-145)
[2018-08-20 07:53] LABS: #Lymphocytes 1.4 thou/uL (1.20-3.40); #Monocytes 0.6 thou/uL (0.11-0.59); #Neutrophils 3.7 thou/uL (1.40-6.50); %Basophils 0.5 % (0.0-1.0); %Eosinophils 0.4 % (0.0-10.0); %Monocytes 9.8 % (0.0-10.0); %Neutrophils 64.4 % (42.0-75.0); Hemoglobin 8.7 g/dL (12.0-16.0); Mean Corpuscular HGB CONC 32.1 g/dL (32.0-36.0); Mean Corpuscular Hemoglobin 23.9 pg (27.0-31.0); Mean Corpuscular Volume 74.5 fL (78.0-98.0); Mean Platelet Volume 8.4 fL (7.4-10.4); Platelet Count 332 thou/uL (130-400); RBC Distribution Width 15.6 % (11.5-14.5); Red Blood Cell (RBC) Count 3.65 mill/uL (4.20-5.40); White Blood Cell (WBC) Count 5.7 thou/uL (4.8-10.8)
[2018-08-20 07:54] LABS: MDiff Complete? YES; Microcytosis SLIGHT = 6-15 cells (100X) (0-5/hpf)
[2018-08-20] MEDS: Enoxaparin Sodium 40 MG/0.4 ML SYRINGE SC SCH (08:21)
[2018-08-20] MEDS: lamoTRIgine 100 MG TAB PO SCH (08:22)
[2018-08-20] MEDS: metFORMIN 500 MG TAB PO SCH ×2 (08:23→17:04)
[2018-08-20] MEDS: Pregabalin 75 MG CAP PO SCH ×2 (08:24→20:20)
[2018-08-20] MEDS: Aspirin 81 mg Enteric Coated Tablet PO SCH (08:24)
[2018-08-20] MEDS: Tamsulosin HCl 0.4 MG CAP PO SCH ×2 (08:24→20:21)
[2018-08-20] MEDS: Carbidopa/Levodopa 25-100 mg Tablet PO SCH ×3 (09:47→20:19)
--- NOTE | 2018-08-20 11:01 | PDOC.PN ---
- Subjective Encounter Start Date: 08/20/18 Encounter Start Time: 11:00 Subjective: minimal discomfort - Objective Resuscitation Status - Order Detail: 08/17/18 14:55 Resuscitation Status Routine Resuscitation Status: FULL: Full Resuscitation Discussed with: Heather CHAVES Reviewed: Yes Vital Signs & Weight: Vital Signs (12 hours) Temp Pulse Resp BP BP Pulse Ox 08/20/18 08:00 97.9 F 64 18 145/80 H 93 L 08/20/18 04:00 98.3 F 65 16 123/67 91 L 08/20/18 00:00 99.9 F H 85 18 123/74 94 L Weight Admit Weight 137 lb 8 oz Weight 137 lb I&O: 08/19/18 08/20/18 08/21/18 06:59 06:59 06:59 Intake Total 5220 1560 Output Total 480 300 Balance 4740 1260 Result Diagrams: 08/20/18 05:35 08/20/18 05:35 Additional Labs: Accuchecks 08/20/18 08/19/18 08/19/18 04:55 20:23 16:34 POC Glucose 93 110 87 Phys Exam - Physical Examination Neck: no JVD Respiratory: clear to auscultation bilateral Cardiovascular: RRR, no significant murmur Gastrointestinal: soft, non-tender, positive bowel sounds Musculoskeletal: no edema Dx/Plan (1) Erosive gastritis Code(s): K29.60 - OTHER GASTRITIS WITHOUT BLEEDING Status: Acute (2) Elevated amylase and lipase Code(s): R74.8 - ABNORMAL LEVELS OF OTHER SERUM ENZYMES Status: Acute Comment: unclear etiology (3) Diabetes type 2, controlled Code(s): E11.9 - TYPE 2 DIABETES MELLITUS WITHOUT COMPLICATIONS Status: Chronic Qualifiers: Diabetes mellitus half-way insulin use: without half-way use Diabetes mellitus complication status: without complication Qualified Code(s): E11.9 - Type 2 diabetes mellitus without complications (4) Hypertension Code(s): I10 - ESSENTIAL (PRIMARY) HYPERTENSION Status: Chronic (5) Iron deficiency anemia Code(s): D50.9 - IRON DEFICIENCY ANEMIA, UNSPECIFIED Status: Chronic (6) Parkinson disease Code(s): G20 - PARKINSON'S DISEASE Status: Chronic (7) Chest pain Code(s): R07.9 - CHEST PAIN, UNSPECIFIED Status: Resolved - Plan stress test neg -: EGD- erosive gstritis- PPI -: accu/ss -: advancr diet -: home in AM * .
[2018-08-20] MEDS: Donepezil HCl 5 MG TAB PO SCH (20:20)
[2018-08-20] MEDS: Loratadine 10 MG TAB PO SCH (20:20)
[2018-08-20] MEDS: Senokot 8.6 MG TAB PO SCH (20:20)
[2018-08-21] MEDS: Acetaminophen 325 MG TAB PO PRN (06:23)
[2018-08-21] MEDS: Carbidopa/Levodopa 25-100 mg Tablet PO SCH ×2 (08:27→14:18)
[2018-08-21] MEDS: metFORMIN 500 MG TAB PO SCH (08:29)
[2018-08-21] MEDS: lamoTRIgine 100 MG TAB PO SCH (08:29)
[2018-08-21] MEDS: Aspirin 81 mg Enteric Coated Tablet PO SCH (08:29)
[2018-08-21] MEDS: Tamsulosin HCl 0.4 MG CAP PO SCH (08:29)
[2018-08-21] MEDS: Pregabalin 75 MG CAP PO SCH (08:30)
[2018-08-21] MEDS: Enoxaparin Sodium 40 MG/0.4 ML SYRINGE SC SCH (08:34)
[2018-08-21 14:26] VITALS: BP 128/74; TEMP 98.1
--- NOTE | 2018-08-22 09:43 | DIS ---
DATE OF ADMISSION: 08/18/2018 DATE OF DISCHARGE: 08/21/2018 DISCHARGE DISPOSITION: To [facility] in [place]. DISCHARGE MEDICATIONS: 1. Omnicef 300 mg twice daily for next five days. 2. Slow Fe 142 mg daily. 3. Protonix 40 mg daily. 4. Senokot-S one tablet p.o. b.i.d. 5. All other home medications were left unchanged. INPATIENT CONSULTANTS: 1. Gastroenterology, Dr. Larkin. 2. Cardiology Dr. Cheatham. DIAGNOSTIC TESTS: 1. CT scan of the abdomen and pelvis on admission was negative for acute findings. 2. Right upper quadrant ultrasound was negative. 3. Cardiolite stress test was negative for reversible ischemia. Ejection fraction was 58% without any wall motion abnormality. INPATIENT PROCEDURES: 1. On 19 Aug 2018, the patient underwent EGD that showed erosive gastritis in the antrum. Biopsies were obtained for H pylori. 2. On the same day, the patient underwent colonoscopy that showed sigmoid diverticulosis. FOLLOWUP: 1. Follow up with Dr. Larkin in 2 to 3 weeks. 2. Follow up with Dr. Audrey Lemon at the nursing facility. BRIEF HOSPITAL COURSE: The patient is a 78-year-old female, residing at [facility] in [place], presented to the hospital on 18 Aug 2018 with chest/epigastric pain. Please refer to the history and physical for further details. The patient was admitted to the hospital with a diagnosis of chest discomfort/epigastric discomfort. She underwent CT scan of the abdomen along with right upper quadrant that was negative. She was monitored on telemetry unit. She was also evaluated by Cardiology and underwent stress test and an echocardiogram. Echocardiogram showed ejection fraction 50% to 55% with grade 1/3 diastolic dysfunction. Due to persistent discomfort, she was evaluated by Gastroenterology and underwent EGD and colonoscopy as discussed above. She has been cleared by consultants for discharge. She was advised to continue PPIs. All other home medications were left unchanged. She was also diagnosed with UTI and has been started on Omnicef. Urine culture showed nonhemolytic Streptococcus greater than 100,000 colonies, gram-negative emelina 25,000 to 50,000 colonies. Sensitivities were not performed due to multiple organisms. She has been cleared by consultants for discharge. The patient was found to have elevated amylase and lipase. The lipase on admission was 472 with a maximum lipase of 632. The lipase then improved to 203. Her amylase was elevated at 257 on admission that improved to 139. Exact etiology of this is unclear. She will follow up with Gastroenterology as outpatient. FINAL DIAGNOSES: 1. Chest/epigastric discomfort. 2. Erosive gastritis in the antrum. 3. Diverticulosis. 4. Diabetes mellitus type 2. 5. Hypertension. 6. Hyperlipidemia. 7. Parkinson disease. 8. Chronic kidney disease, stage 2. 9. Hyponatremia. 10. Hypokalemia. 11. Mild protein-calorie malnutrition. 12. Elevated amylase and lipase of unclear etiology. CT scan as well as right upper quadrant ultrasound was negative. 13. Iron deficiency with iron of 16, TIBC 358, and ferritin of 8.39. TIME SPENT WITH PATIENT: Total time coordinating the discharge of this patient was 34 minutes. Job ID: [id number]
--- NOTE | 2018-08-22 14:16 | STRESS ---
Acquisition Time: 2018-08-18 11:55:17 Total Exercise Time: 00:01:00 Test Indications: CHEST PAIN Medications: Protocol: LEXISCAN Max HR: 103 BPM 72% of Pred: 142 BPM Max BP: 168/064 mmHG Max Work Load: 1.0 METS RESTING ECG: NORMAL SINUS RHYTHM AT 61 BPM WITH LEFT AXIS DEVIATION SYMPTOMS: DYSPNEA NORMAL BP RESPONSE ECTOPY: NONE ECG STRESS: NO SIGNIFICANT CHANGES INTERPRETATION: AWAIT NUCLEAR IMAGES FOR DEFINITIVE DIAGNOSIS Confirmed by HARMAN CHARLES (2), editor in chief newspaper GERRY CASTANEDA ([id number]) on 08/22/2018 2:16:04 PM Referred By: MD Mike PAT Confirmed By:HARMAN CHARLES
--- NOTE | 2018-08-23 14:31 | PQF ---
YASMEEN ENAMORADO MALIK MD [id number] CLINICAL DOCUMENTATION CLARIFICATION FORM: POST DISCHARGE DATE: 08/23/2018 ATTN: Dr. Deras Please exercise your independent, professional judgment in responding to the clarification form. Clinical indicators are provided on the bottom of this form for your review Please check appropriate box(s): [ x ] Chest pain due to erosive esophagitis/gastritis [ ] Other diagnosis (please specify) [ ] Unable to determine In addition, please specify: Present on Admission (POA): [ x] Yes [ ] No [ ] Unable to determine For continuity of documentation, please document condition throughout progress notes and discharge summary. Thank You. CLINICAL INDICATORS - SIGNS / SYMPTOMS /LABS Per H&Sunny: Left sided chest pain for the past two weeks. Goes to left arm and jaw, around entire chest and into back. Per 08/18 PN (Case) : Chest pain greatly improved. Does complain of abdominal pain. Chest pain, resolved for now. Per 08/17 consult (Case): Progressive worsening chest pain for the past 10 day, left sided. Some shortness of breath. Nauseated two to three times. . Per 08/17 consult ( [place]) : Chest pain worsening the past two weeks. Chest pain, atypical in nature. Per 08/18 cardiology PN (Linden): Chest pain. Per 08/20 Hospitalist PN (Kyler): Chest pain, unspecified, resolved. Per 08/19 Hospitalist PN (Howie): Chest pain, unspecified, resolved. Per discharge summary: Chest/epigastric discomfort. Erosive gastritis in the antrum. RISK FACTORS Per 08/19 EGD (Case): Erosive antral gastritis. TREATMENTS: Per H&P: Continue nitroglycerin 1 inch. Aspirin 81mg po daily. Per medications: Protonix 40 mg po daily. Morphine 4 mg slow IVP q4H prn. Zofran 4 mg IVP q6H prn. EGD 08/19 (Case) with biopsy of gastric antrum. (This form is maintained as a part of the permanent medical record) 2014 [employer]. All Rights Reserved Nnay [email or web address] [phone] MTDD
== END 2018-08-21 15:55 | disposition home or self-care (01) | DRG 392 ==
LOC: ERS 12:05 → ERHOLD 14:47 → 2NO 17:20 → OBSVTOIN 08-18 16:02 → T4-B 08-19 16:05
PROVIDERS: ADMIT Emergency Medicine; ATTEND Emergency Medicine
PROC: 0DB68ZX Excision of Stomach, Via Natural or Artificial Opening Endoscopic, Diagnostic (ICD-10-PCS; principal; 2018-08-19)
PROC: 0DJD8ZZ Inspection of Lower Intestinal Tract, Via Natural or Artificial Opening Endoscopic (ICD-10-PCS; 2018-08-19)
DX: K29.60 Other gastritis without bleeding (principal); E87.1 Hypo-osmolality and hyponatremia; E44.1 Mild protein-calorie malnutrition; N39.0 Urinary tract infection, site not specified; E78.5 Hyperlipidemia, unspecified; G20 Parkinson's disease; K57.30 Diverticulosis of large intestine without perforation or abscess without bleeding; D50.9 Iron deficiency anemia, unspecified; I12.9 Hypertensive chronic kidney disease with stage 1 through stage 4 chronic kidney disease, or unspecified chronic kidney disease; E11.22 Type 2 diabetes mellitus with diabetic chronic kidney disease; N18.2 Chronic kidney disease, stage 2 (mild); K64.4 Residual hemorrhoidal skin tags; E87.6 Hypokalemia; Z68.25 Body mass index [BMI] 25.0-25.9, adult; R74.8 Abnormal levels of other serum enzymes; B95.4 Other streptococcus as the cause of diseases classified elsewhere; Z99.3 Dependence on wheelchair; Z87.891 Personal history of nicotine dependence; Z86.73 Personal history of transient ischemic attack (TIA), and cerebral infarction without residual deficits; Z88.2 Allergy status to sulfonamides; Z88.5 Allergy status to narcotic agent; Z91.018 Allergy to other foods; Z88.0 Allergy status to penicillin; Z79.84 Long term (current) use of oral hypoglycemic drugs; Z79.82 Long term (current) use of aspirin; Z79.899 Other long term (current) drug therapy; Z96.643 Presence of artificial hip joint, bilateral
CPT/HCPCS: 36415; 36416; 71045; 74177; 76705; 78452; 80048; 80053; 80061; 81001; 82150; 82607; 82728; 82746; 83540; 83550; 83690; 84484; 85025; 87086; 88305; 88312; 93005; 93017; 93306; A9500; J0360; J1650; J2001; J2270; J2405; J2704; J2785; J2916; J3490; Q9966

== ENCOUNTER 2018-09-14 08:37 | Inpatient (IN) | payer MEDICAID, MEDICARE ==
--- NOTE | 2018-09-14 09:14 | CT ---
CT head noncontrast HISTORY: Altered mental status. Headache. Left facial tingling. FINDINGS: No comparison. There is no evidence of acute intracranial hemorrhage or infarct. Diffuse co rtical atrophy and chronic ischemic small vessel disease. Dystrophic calcification within the basal ganglia. No mass effect or shift of midline structures. Visualized paranasal sinuses remain well-aera barby. IMPRESSION: No acute intracranial abnormalities are demonstrated. Findings were called to Dr. Patel in the emergency department at 0903 hours. Code CR.
[2018-09-14 09:23] LABS: #Basophils 0.1 thou/uL (0.0-0.2); #Eosinphils 0.1 thou/uL (0.0-0.7); #Lymphocytes 1.8 thou/uL (1.20-3.40); #Monocytes 0.5 thou/uL (0.11-0.59); %Basophils 1.4 % (0.0-1.0); %Eosinophils 1.2 % (0.0-10.0); %Lymphocytes 33.2 % (21.0-51.0); %Monocytes 9.1 % (0.0-10.0); %Neutrophils 55.1 % (42.0-75.0); Hemoglobin 12.4 g/dL (12.0-16.0); Mean Corpuscular HGB CONC 31.5 g/dL (32.0-36.0); Mean Corpuscular Volume 79.4 fL (78.0-98.0); Mean Platelet Volume 9.3 fL (7.4-10.4); Platelet Count 284 thou/uL (130-400); RBC Distribution Width 19.2 % (11.5-14.5); Red Blood Cell (RBC) Count 4.97 mill/uL (4.20-5.40); White Blood Cell (WBC) Count 5.4 thou/uL (4.8-10.8)
[2018-09-14 09:32] LABS: PTT 35.7 SEC (22.9-36.1)
--- NOTE | 2018-09-14 09:41 | CT ---
Carotid intracranial and intracranial CTA contrast-enhanced CTA performed. 2-D and 3-D reconstruction images performed. HISTORY: Recent onset left-sided paresthesias. Contrast-enhanced CTA of the aortic arch and carotid arteries demonstrates no significant evidence of carotid stenosis. Minimal bilateral proximal ICA calcified plaque seen. No significant evidence of high-grade stenosis or flow-limiting lesion seen. The right and left vertebral arteries are patent. Intracranial CTA demonstrates the patient to have a left-sided circulation with a dominant left posterior commuting artery providing the left MANUFACTURING ENGINEER vessel flow. The LI, MCA and MANUFACTURING ENGINEER vessels are otherwise unremarkable without evidence of flow limiting lesions or thrombus. IMPRESSION: normal carotid and intracranial CTA. Findings called Dr. Patel at 9:34 AM on 09/14/2018. Code CR
[2018-09-14 09:49] LABS: ALT (SGPT) Less than 7 U/L (8-55); AST (SGOT) 10 U/L (5-34); Albumin 4.7 g/dL (3.4-4.8); Alkaline Phosphatase 71 U/L (40-150); Anion Gap 15 mmol/L (10-20); BUN (Urea Nitrogen) 15 mg/dL (9.8-20.1); Bilirubin, Total 0.7 mg/dL (0.2-1.2); Calc. Creatinine Clearance 0 mL/min (70-130); Calcium 10.3 mg/dL (7.8-10.44); Carbon Dioxide 26 mmol/L (23-31); Chloride 102 mmol/L (98-107); Estimated GFR-MDRD 74; Globulin 2.5 g/dL (2.4-3.5); Glucose 93 mg/dL (83-110); Potassium 3.9 mmol/L (3.5-5.1); Protein, Total 7.2 g/dL (6.0-8.3); Sodium 139 mmol/L (136-145)
[2018-09-14] MEDS ORDERED: hydrALAZINE 20 MG/ML VIAL ONE (09:54)
[2018-09-14] MEDS ORDERED: Aspirin Chewable 81 MG TAB ONE ×2 (09:54→09:56)
[2018-09-14] MEDS ORDERED: niCARdipine 20MG In NaCl 20 MG/200 ML BAG ONE (10:50)
[2018-09-14] MEDS ORDERED: Ketorolac Tromethamine 30 MG/ML VIAL ONE (10:50)
--- NOTE | 2018-09-14 13:08 | MRI ---
MRI BRAIN NONCONTRAST: DATE: 09/14/18 HISTORY: 78-year-old female with acute stroke symptoms: weakness in left upper extremity, left facial paresthe christophe, and severe headache. FINDINGS: The ventricles are normal in size and configuration. There is no restricted diffusion, midline shift or any other mass effect, recent intraaxial hemorrhage, or extraaxial fluid collection. There is a moderate degree of T2-hyperintensities in the cerebral white matter consistent with chronic ischemic white matter changes due to microvascular atherosclerosis. There are several tiny old lacunar infarctions in the left basal ganglia, left thalamus, and probably a few in the right basal ganglia. There is approximately 50% partial opacification of the right sphe noid air cell with combination of moderate mucosal thickening and moderate size mucus retention cyst. IMPRESSION: 1. Moderate chronic ischemic white matter changes. 2. Tiny old lacunar infarctions in bilateral basal ganglia and left thalamus. 3. No acute intracranial findings. 4. Sphenoid sinus disease. severino[] POS: ROBY
[2018-09-14] MEDS ORDERED: Ondansetron PF 4 MG/2 ML Vial IVP PRN (13:22)
[2018-09-14] MEDS ORDERED: Ondansetron ODT 4 MG TAB PO PRN (13:22)
[2018-09-14] MEDS ORDERED: niCARdipine HCl 25 MG in Sodium Chloride 0.9% 250 ML 240 ML IVPB SCH (13:30)
[2018-09-14 14:13] VITALS: BMI 23.1
[2018-09-14 14:13] LABS: Troponin I Less than 0.010 ng/mL (< 0.028)
[2018-09-14] MEDS ORDERED: Guaifenesin DM 100-10/5 ML UDCUP PO PRN (14:34)
[2018-09-14] MEDS ORDERED: Senokot S 8.6-50 MG TAB PO PRN (14:34)
[2018-09-14] MEDS ORDERED: Acetaminophen 650 MG Suppository PR PRN (14:34)
[2018-09-14] MEDS ORDERED: Acetaminophen 325 MG TAB PO PRN (14:34)
[2018-09-14] MEDS ORDERED: Senokot 8.6 MG TAB PO PRN (14:38)
[2018-09-14] MEDS ORDERED: Metoclopramide HCl 10 MG/2 ML VIAL IVP SCH (14:45)
[2018-09-14] MEDS ORDERED: diphenhydrAMINE 50 MG/ML VIAL IVP SCH (14:45)
[2018-09-14] MEDS ORDERED: Dextrose 5% in Water 1,000 ML IV PRN (14:56)
[2018-09-14] MEDS ORDERED: HumaLOG 300 UNITS/3 ML VIAL SC PRN ×2 (14:56)
[2018-09-14] MEDS ORDERED: Dextrose 50% Abboject 50 ML SYRINGE SLOW IVP PRN (14:56)
[2018-09-14] MEDS ORDERED: LEVODOPA PO SCH (15:00)
[2018-09-14] MEDS ORDERED: CARBIDOPA PO SCH (15:00)
[2018-09-14] MEDS ORDERED: hydrALAZINE 20 MG/ML VIAL SLOW IVP PRN (15:08)
[2018-09-14] MEDS ORDERED: Labetalol HCl 100 MG/20 ML VIAL SLOW IVP PRN (15:09)
[2018-09-14] MEDS ORDERED: Lisinopril 10 MG TAB PO SCH (15:45)
[2018-09-14] MEDS: metFORMIN 500 MG TAB PO SCH (16:35)
--- NOTE | 2018-09-14 16:42 | HP ---
PRIMARY CARE PHYSICIAN: Audrey Lemon DO CHIEF COMPLAINT: Headache and left facial numbness and tingling. HISTORY OF PRESENT ILLNESS: This is a 78-year-old white female with a history of previous stroke with right-sided facial droop as a residual. She reports that she woke up this morning at the detention with severe headache associated with numbness and tingling in the left side of her face, possibly having control of her moving and she also said she had trouble speaking at the time. She alerted the staff there and she was brought into the emergency room. In the ER here, she was noted to have elevated blood pressures 180s to 190s systolic. She had a negative CT and negative CTA. Initially, she had some left upper arm weakness. This is chronic from an old fractured left shoulder and she also has some left facial numbness, no obvious droop on that side. The patient was given Toradol. She was given medications for blood pressure, eventually put on a Cardene drip and her symptoms improved. Her headache got much better and she had no more tingling on side of her face. She denies any changes in her left side of her body otherwise besides her face and her side of her neck was also little tingly. She was then admitted to the [facility] for possible stroke versus TIA. The patient has now had an MRI done that shows an old stroke, mostly in the left side of the brain. There is a possible old one on the right side as well, but no acute stroke. PAST MEDICAL HISTORY: 1. Parkinson disease. 2. 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 3. Chronic urinary tract infections, followed by Urology. 4. Diabetes mellitus type 2, on oral hypoglycemics. 5. Hyperlipidemia. 6. Hypertension. 7. Erosive gastritis. 8. Diverticulosis. 9. Chronic kidney disease, stage 2. 10. Mild protein-calorie malnutrition. 11. Multiple fractures of left shoulder, not able to move well for years now. PAST SURGICAL HISTORY: 1. Bilateral ankle surgery. 2. Bilateral knee surgery. 3. Bilateral hip replacements. 4. Right wrist surgery. 5. Skin cancer removal to the face x2. 6. Tonsillectomy. SOCIAL HISTORY: The patient smoked for about 10 years, quit when she was 25. No alcohol. No illicit drug use. She has been living at [facility] since April of this year due to not being able to care for herself well at home. She has two children, son who lives with her name and daughter who lives about 4 hours away. The patient is a . FAMILY HISTORY: Her mother had heart disease in her 70s and her father may have had some heart problems but in his 90s. She also has one sister who of Alzheimer's. ALLERGIES: 1. CODEINE. 2. PENICILLIN. 3. SULFA ANTIBIOTICS. CURRENT MEDICATIONS: 1. Estradiol cream one application vaginally every Tuesday, , and Tuesday. 2. Tamsulosin 0.4 mg twice a day. 3. Namenda 5 mg daily. 4. Aricept 5 mg daily. 5. Lyrica 75 mg twice a day. 6. Nexium 40 mg daily. 7. Sinemet 25/100 mg one and half tablets 3 times a day. 8. Senna 8.6 mg daily. 9. Vitamin E 400 mg daily. 10. Vitamin D 1000 units daily. 11. Aspirin 81 mg daily. 12. Lamotrigine 100 mg daily. 13. Zyrtec 10 mg daily. 14. Metformin 1000 mg twice a day. REVIEW OF SYSTEMS: CONSTITUTIONAL: No fevers. No chills. EYES: No double vision or blurred vision. ENT: No congestion, drainage, or sore throat. CARDIOVASCULAR: No chest pain. No palpitations or racing heart. PULMONARY: No coughing, wheezing or shortness of breath. GASTROINTESTINAL: No abdominal pain. No nausea or vomiting. No diarrhea or constipation. GENITOURINARY: No dysuria or hematuria. MUSCULOSKELETAL: She has had some chronic back pain. It is worse from lying in the hospital bed here. She also has had recurrent cramping in her legs. It has been going on for some time. SKIN: No rashes or lesions noted. NEUROLOGIC: See HPI. PHYSICAL EXAMINATION: VITAL SIGNS: Blood pressure 135/68, off Cardene drip now, pulse 69, respirations 18, O2 saturation 100% on room air, temperature 97.8. GENERAL: This is a well-developed, well-nourished white female, in no acute distress. HEENT: Pupils are equal, round, and reactive to light. Oropharynx clear without lesions, erythema, or exudate. NECK: Supple. No lymphadenopathy. No thyroid nodules or enlargement. No JVD. HEART: Regular rate and rhythm. No murmurs, rubs, or gallops. LUNGS: Clear to auscultation bilaterally. No wheezes, crackles, or rhonchi. ABDOMEN: Soft, nontender to palpation. Normoactive bowel sounds. No hepatosplenomegaly or other masses. EXTREMITIES: No clubbing, cyanosis, or edema. The patient does have some decreased strength in her left upper extremity due to pain in her shoulder. Strength is about 4/5 in left upper extremity, 5/5 in the right upper extremity and she is equally weak in bilateral lower extremities. NEUROLOGIC: See extremity exam above. She does have a very mild right facial droop. Her tongue deviates to the right side and she has some drooping of the right anterior tonsillar pillars. She speaks clearly, has normal reflexes throughout. SKIN: No rashes or lesions noted. PSYCHIATRIC: Alert and oriented x3. Normal mood and affect. DIAGNOSTIC DATA: CBC within normal limits. Coagulation profile normal. Complete metabolic panel is completely normal. Troponin is negative x2. EKG done in the emergency room shows sinus bradycardia, 56 beats per minute with no ST-segment changes. No T-wave abnormalities. There is some left axis deviation. No significant arrhythmias. CT of the brain shows no acute abnormalities. CT angiography of the brain and neck show no lesions of the carotids and no intracranial abnormalities. MRI of the brain shows moderate chronic ischemic white matter changes, tiny old lacunar infarcts in the bilateral basal ganglia and left thalamus. No acute intracranial findings. No acute stroke. ASSESSMENT: 1. Transient ischemic attack, now resolved. We will continue patient's aspirin and we will monitor overnight. She does not have any carotid disease. We will have PT, OT and Speech Therapy evaluate. At this point, the patient's symptoms are resolving and I do not think she needs a Neurology consult at this time. This may be also related to migraine headache. She is having some persistent headache at this time, so we will give her a dose of metoclopramide and Benadryl to see if we can resolve the symptoms. 2. Hypertensive urgency/emergency. This is resolved with medication. If it remains controlled, we can transfer her out of the [facility] to the stroke unit. We will restart some blood pressure management as the patient had some hypertension during her last hospitalization too and has not been on any blood pressure medications for the last 6 months or so. 3. Diabetes mellitus type 2. We will resume patient's metformin. Check fingerstick blood sugars before meals and at bedtime and do an insulin sliding scale as needed. 4. Parkinson's. We will resume patient's Sinemet as well as her dementia medications. 5. Gastrointestinal prophylaxis. We will continue patient's proton pump inhibitor. 6. Deep venous thrombosis prophylaxis. The patient on Lovenox and SCDs while in bed. 7. Code status. I did discuss with the patient. She has previously reported being full code. This time, she was not certain, was unable to make a decision and says she needs to talk to her son. I am going to have Palliative Care see her to help her with code status decision making. 8. We will observe the patient overnight. If she continues to have improvement in her symptoms, we will likely be able to discharge back to her detention tomorrow. Job ID: [id number]
[2018-09-14 16:58] LABS: Troponin I Less than 0.010 ng/mL (< 0.028)
[2018-09-14] MEDS: Pregabalin 75 MG CAP PO SCH (20:11)
[2018-09-14] MEDS: Tamsulosin HCl 0.4 MG CAP PO SCH (20:11)
[2018-09-14] MEDS ORDERED: Famotidine 20 MG TAB PO SCH (21:00)
[2018-09-14] MEDS ORDERED: Donepezil HCl 5 MG TAB PO SCH (21:00)
[2018-09-15 04:02] LABS: #Eosinphils 0.1 thou/uL (0.0-0.7); #Monocytes 0.5 thou/uL (0.11-0.59); #Neutrophils 3.3 thou/uL (1.40-6.50); %Basophils 0.7 % (0.0-1.0); %Eosinophils 0.9 % (0.0-10.0); %Lymphocytes 33.8 % (21.0-51.0); %Monocytes 7.9 % (0.0-10.0); %Neutrophils 56.7 % (42.0-75.0); Hemoglobin 10.4 g/dL (12.0-16.0); Mean Corpuscular HGB CONC 32.2 g/dL (32.0-36.0); Mean Corpuscular Hemoglobin 25.2 pg (27.0-31.0); Mean Corpuscular Volume 78.5 fL (78.0-98.0); Mean Platelet Volume 9.6 fL (7.4-10.4); Platelet Count 258 thou/uL (130-400); RBC Distribution Width 19.3 % (11.5-14.5); Red Blood Cell (RBC) Count 4.12 mill/uL (4.20-5.40); White Blood Cell (WBC) Count 5.8 thou/uL (4.8-10.8)
[2018-09-15 04:20] LABS: Anion Gap 15 mmol/L (10-20); BUN (Urea Nitrogen) 24 mg/dL (9.8-20.1); Calc. Creatinine Clearance 62 mL/min (70-130); Calcium 9.2 mg/dL (7.8-10.44); Carbon Dioxide 23 mmol/L (23-31); Chloride 104 mmol/L (98-107); Estimated GFR-MDRD 78; Glucose 100 mg/dL (83-110); Potassium 3.6 mmol/L (3.5-5.1); Sodium 138 mmol/L (136-145)
[2018-09-15] MEDS: metFORMIN 500 MG TAB PO SCH ×2 (07:39→17:32)
[2018-09-15] MEDS: Tamsulosin HCl 0.4 MG CAP PO SCH (07:39)
[2018-09-15] MEDS: Pregabalin 75 MG CAP PO SCH (07:40)
[2018-09-15] MEDS ORDERED: Lisinopril 10 MG TAB PO SCH (09:00)
[2018-09-15] MEDS ORDERED: Enoxaparin Sodium 40 MG/0.4 ML SYRINGE SC SCH (09:00)
[2018-09-15] MEDS ORDERED: Aspirin 81 mg Enteric Coated Tablet PO SCH (09:00)
[2018-09-15] MEDS ORDERED: lamoTRIgine 100 MG TAB PO SCH (09:00)
[2018-09-15 15:22] VITALS: TEMP 98
[2018-09-15 16:01] VITALS: BP 113/67
== END 2018-09-15 19:20 | DRG 69 ==
LOC: ERS 08:37 → IMCU/EMU 12:38
PROVIDERS: ADMIT Emergency Medicine; ATTEND Emergency Medicine
DX: G45.9 Transient cerebral ischemic attack, unspecified (principal); I16.1 Hypertensive emergency; E44.1 Mild protein-calorie malnutrition; G20 Parkinson's disease; E78.5 Hyperlipidemia, unspecified; I69.392 Facial weakness following cerebral infarction; N18.2 Chronic kidney disease, stage 2 (mild); I12.9 Hypertensive chronic kidney disease with stage 1 through stage 4 chronic kidney disease, or unspecified chronic kidney disease; E11.22 Type 2 diabetes mellitus with diabetic chronic kidney disease; Z96.643 Presence of artificial hip joint, bilateral; Z85.828 Personal history of other malignant neoplasm of skin; Z90.49 Acquired absence of other specified parts of digestive tract; Z90.11 Acquired absence of right breast and nipple; Z87.891 Personal history of nicotine dependence; Z88.0 Allergy status to penicillin; Z88.2 Allergy status to sulfonamides; Z88.5 Allergy status to narcotic agent; Z79.82 Long term (current) use of aspirin; Z79.84 Long term (current) use of oral hypoglycemic drugs; Z68.23 Body mass index [BMI] 23.0-23.9, adult
CPT/HCPCS: 36415; 36416; 70450; 70496; 70498; 70551; 80048; 80053; 84484; 85025; 85610; 85730; 93005; 96365; 96375; J0360; J1200; J1650; J1885; J2765